=== PATIENT | female | born 1975 | race Caucasian/White ===

== ENCOUNTER 2016-11-03 11:21 | Emergency (ER) | payer SELFPAY ==
[~2016-11-03] VITALS: Ht 162.6 cm; Wt 70.0 kg
[2016-11-03 11:22] VITALS: BP 137/72; PULSE 81; RESP 12; TEMP 98.3; O2SAT 99
[2016-11-03] MEDS ORDERED: IBUP800T23 PO ×2 (11:45→12:03)
[2016-11-03] MEDS ORDERED: DEXAMETHASONE SOD PHOS 20 MG/5 ML VIAL IM ONE (11:45)
[2016-11-03] MEDS ORDERED: ROBA500T PO ×2 (11:46→12:03)
--- NOTE | 2016-11-03 11:46 | PD ---
HPI Chief Complaint: Pain: Acute or Chronic Time Seen by Provider: 11:43 Travel History International Travel<30 days: No Contact w/Intl Traveler<30days: No Traveled to known affect area: No History of Present Illness HPI 41 year-old female presents to the emergency department for evaluation. Patient presents with MRI results. These were ordered by her chiropractor but her chiropractor is unable to prescribe her any pain control. Patient does not have a primary care provider locally. She would like injections in her neck. Patient states that she has had neck pain for an extended amount of time however Wednesday, 3 days ago, she woke up with right sided neck and arm pain. She started going to the chiropractor which did not help. Imaging studies were ordered, completed, and patient has nobody to follow-up with. She reports no new injury. No recent illness, fever, or chills. She has no history of IV drug use. She has no other symptoms to report. PFSH Past Medical History Medical History: Denies Significant Hx ?: Not Social History Alcohol Use: No Tobacco Use: No Substance Use: No Allergies-Medications (Allergen,Severity, Reaction): Coded Allergies: No Known Allergies (Unverified , 11/03/16) Reported Meds & Prescriptions Reported Meds & Active Scripts Active Robaxin (Methocarbamol) 500 Mg Tab 500 Mg PO QID PRN Ibuprofen 800 Mg Tab 800 Mg PO Q8H PRN Review of Systems Except as stated in HPI: all other systems reviewed are Neg Physical Exam Narrative GENERAL: Well-nourished female patient, ambulatory no acute distress SKIN: Warm and dry. HEAD: Atraumatic. Normocephalic. EYES: Pupils equal and round. No scleral icterus. No injection or drainage. ENT: No nasal bleeding or discharge. Mucous membranes pink and moist. NECK: Trachea midline. No JVD. No cervical spine tenderness. There is tenderness also to palpation along the right trapezius musculature. CARDIOVASCULAR: Regular rate and rhythm. No murmur appreciated. RESPIRATORY: No accessory muscle use. Clear to auscultation. Breath sounds equal bilaterally. GASTROINTESTINAL: Abdomen soft, non-tender, nondistended. Hepatic and splenic margins not palpable. MUSCULOSKELETAL: No obvious deformities. No clubbing. No cyanosis. No edema. 5 plus strength equal bilateral extremities. Montes De Oca sign is negative. Sensation intact distal extremity. NEUROLOGICAL: Awake and alert. No obvious cranial nerve deficits. Motor grossly within normal limits. Normal speech. PSYCHIATRIC: Appropriate mood and affect; insight and judgment normal. Data Data Last Documented VS Vital Signs Date Time Temp Pulse Resp B/P Pulse Ox O2 Delivery O2 Flow Rate FiO2 11/03/16 11:22 98.3 81 12 137/72 99 Room Air Orders Dexamethasone Inj (Decadron Inj) (11/03/16 11:45) MDM Medical Decision Making Medical Screen Exam Complete: Yes Emergency Medical Condition: Yes Medical Record Reviewed: Yes Differential Diagnosis Cervical radiculopathy versus neuralgia versus shoulder sprain versus osteoarthritis versus discogenic pain Narrative Course 41-year-old female presents to the the emergency department. Patient has her MRI and would like injections into her neck however I told her we do not do this here. I explained to her that there is a need for her to follow-up with the neurosurgeon for further evaluation and recommendation of treatment. Pain management is also an option. She is provided pain control here. She agrees to return immediately with any worsening symptoms. Diagnosis Primary Impression: Cervical radicular pain Referrals: Marvin Villarreal Neurosurgeon Pain Management Primary Care Physician Patient Instructions: Cervical Radiculopathy (ED), General Instructions Departure Forms: Tests/Procedures, Work Release Enter return to work date: Nov 09, 2016 Additional Instructions: It is important that you follow up with a primary care provider Seek neurosurgery evaluation Return immediately to the emergency department with any acute worsening symptoms Med/Other Pt SpecificInfo: Prescription(s) given Scripts Methocarbamol (Robaxin)500 Mg [id number] Mg PO QID PRN (MUSCLE SPASM) #21 TAB Ref 0 Prov:Mary Grace Philippe 11/03/16 Ibuprofen 800 Mg [id number] Mg PO Q8H PRN (Pain/Inflammation) #30 TAB Ref 0 Prov:Mary Grace Philippe 11/03/16 Disposition: 01 DISCHARGE HOME Condition: Stable Mary Grace Philippe Nov 03, 2016 11:46
== END 2016-11-03 12:17 | disposition home or self-care (01) ==
LOC: NETRI 11:21
DX: M54.12 Radiculopathy, cervical region (principal)
CPT/HCPCS: 96372; 99283; J1100

== ENCOUNTER → 2017-03-22 | Outpatient (CLI) | payer OTHER ==
[~2017-03-22] MED LIST: CYCL1TAB29 PO; HYDR-3583 PO; IBUP800T23 PO; ROBA500T PO
== END ==
LOC: CPRE 11:52
PROVIDERS: ATTEND Neurological Surgery
DX: Z01.812 Encounter for preprocedural laboratory examination (principal); M50.10 Cervical disc disorder with radiculopathy, unspecified cervical region; M48.02 Spinal stenosis, cervical region; M50.30 Other cervical disc degeneration, unspecified cervical region

== ENCOUNTER 2017-03-25 06:07 | Observation (INO) | payer OTHER ==
--- NOTE | 2017-03-24 16:34 | MH ---
cc: LORI VILLAREAL DATE OF ADMISSION 03/25/2017 ADMISSION DIAGNOSIS Cervical disk disorder with radiculopathy. HISTORY OF PRESENT ILLNESS This is a 41-year-old female who presented to us for an evaluation of neck pain radiating into the right upper extremity. She woke up on October 20 with severe neck pain radiating into the right shoulder and into the posterior upper extremity. She states during the day the right upper extremity became numb in the posterior aspect and especially in the right fourth and fifth fingers. She went to a chiropractor about three to four times not for adjustments but massage therapeutic treatments. She states he obtained an MRI and stated she needed to see a spine surgery. She states she used anti-inflammatory medication. The pain improved but she continues to have numbness and weakness in the right hand. She states she has noticed weakness with driving and gripping things. She denies any left upper extremity symptoms. She denies any unsteadiness or incontinence. She has not had any formal physical therapy but has had exercises with chiropractic treatment. She has been to pain management and had an injection which did not help. She has also had an EMG nerve conduction study which is consistent with a right CA radiculopathy with superimposed chronic right ulnar neuropathy at the elbow. PAST MEDICAL HISTORY Significant for breast augmentation in 2008. MEDICATIONS She currently is not taking any medications. ALLERGIES She has no known drug allergies. FAMILY HISTORY Her father is at [id number], had bile duct carcinoma. Her mother is alive at [id number] and well. She has a brother who is alive at 37 and is well. She has another brother who is 32 and well. SOCIAL HISTORY She works as a realtor. She is single. She does not have children. She lives alone. She does not smoke. REVIEW OF SYSTEMS CONSTITUTIONAL: She denies any fever or chills. EARS/NOSE/THROAT: No pharyngitis, exudates or bloody drainage from her nose. CARDIOVASCULAR: She denies any chest pain or palpitations. RESPIRATORY: No cough or shortness of breath. GENITOURINARY: No dysuria, hematuria. MUSCULOSKELETAL: Positive for neck pain and right upper extremity pain. SKIN: No rashes or pruritus. NEUROLOGIC: No difficulty with speech or memory. GASTROINTESTINAL: No nausea, vomiting, abdominal pain. PSYCHIATRIC: No anxiety, depression symptoms. ENDOCRINE: No polyuria, polydipsia. HEMATOLOGY: No bruising or bleeding tendencies. PHYSICAL EXAMINATION HEAD: Normocephalic, atraumatic. NECK: Supple. No carotid bruits heard on auscultation. LUNGS: Clear to auscultation bilaterally. HEART: Regular rate and rhythm, normal S1-S2. ABDOMEN: Soft, nontender. Positive bowel sounds. SKIN: No cyanosis or erythema. MUSCULOSKELETAL: She has 5/5 strength in the upper extremities except for weakness in her right triceps which is about 4+/5 and some hand intrinsic weakness bilaterally. There is no ataxia. NEUROLOGIC: She is awake, alert, oriented. Cranial nerves II-XII are grossly intact. Her speech is fluent. Comprehension is good. Sensation is decreased in the right fourth and fifth fingers, otherwise, intact in the upper extremities. She has 2+ reflexes in the upper extremity. Has no Montes De Oca's reflex. No clonus. DATA Reviewed MRI of the cervical spine from October 30, 2016 which reveals an acute moderate size disk herniation at the right C7-T1 level with significant foraminal stenosis. She also has chronic disk protrusions involving the C3-C4, C4-C5, C5-C6, C6-C7 levels with overall mild stenosis and loss of cervical lordosis. EMG nerve conduction study from February 16, 2017 were also reviewed and are consistent with a right C8 radiculopathy with superimposed chronic right ulnar neuropathy at the elbow. IMPRESSION A 41-year-old female with a right C8 radiculopathy. Her symptoms of neck pain have improved, although, she continues to have paresthesias. She has a disk herniation at the right C7-T1 level with severe foraminal stenosis and C8 nerve root compression. There are a lesser degree of multilevel degenerative disk protrusions also noted from C3-C7. PLAN We have discussed treatment options with the patient and she is requesting that we proceed with surgical intervention. She has failed conservative treatment measures including physical therapy and interventional pain management. We have discussed the procedure of an anterior C7-T1 diskectomy with fusion and the procedure was explained using spine models in the office. We have discussed the risks along with surgery include but not limited to bleeding, infection, muscle weakness, voice hoarseness, difficulty swallowing, heart attack, stroke, blood clots, non-fusion, scar tissue formation among others. We also discussed that given the location of the lower cervical upper thoracic junction can sometimes be difficult and the sternum may require sternotomy with cardiothoracic surgery involvement. The patient understands this and she is wishing to proceed and she was therefore scheduled accordingly. Dictated by: Lopez Cabezas PA-C MD TIANNA Burleson/MIGDALIA /3:49 PM /4:04 PM
[~2017-03-25] VITALS: Ht 165.1 cm; Wt 68.1 kg
[2017-03-25] MEDS ORDERED: SODIUM CHLORID 0.9% 500 ML IV PRN (06:30)
[2017-03-25] MEDS ORDERED: CHLORHEXIDINE GLUCONATE 2 % 1 PACK (2 CLOTHS) TOPICAL PRN (06:30)
[2017-03-25] MEDS ORDERED: METOPROLOL TARTRATE 25 MG TAB PO PRN (06:30)
[2017-03-25] MEDS ORDERED: SODIUM CHLOR 0.9% 1000 ML INJ 1,000 ML IV SCH (06:30)
[2017-03-25] MEDS ORDERED: VANCOMYCIN HCL 1000 MG ON-CALL/NS 250 ML IV SCH ×2 (06:30)
[2017-03-25] MEDS ORDERED: INSULIN HUMAN REGULAR 1,000 UNITS/10 ML VIAL SQ PRN (06:30)
[2017-03-25] MEDS ORDERED: POVIDONE IODINE 5% (ANTISEPSIS KIT) 4 APPLICATIONS EACH NARE PRN (06:30)
[2017-03-25] MEDS ORDERED: LACTATED RINGER'S 1000 ML IV PRN (06:30)
[2017-03-25 06:33] VITALS: BP 109/73; PULSE 74; RESP 16; TEMP 98; O2SAT 98
[2017-03-25] MEDS ORDERED: KETAMINE HCL 500 MG/5 ML VIAL ONE (07:06)
[2017-03-25] MEDS ORDERED: ACETAMINOPHEN 1000 MG/100 ML VIAL IV ONE (07:06)
[2017-03-25] MEDS ORDERED: THROMBIN (TOPICAL) 5,000 UNIT VIAL ONE (07:49)
[2017-03-25] MEDS ORDERED: BUPIVACAINE/EPINEPHRINE 0.5% PF 30 ML VIAL ONE (07:49)
[2017-03-25] MEDS ORDERED: GELFOAM SIZE 100 ONE (07:49)
[2017-03-25] MEDS: VANCOMYCIN HCL 1000 MG VIAL ONE ×2 (08:06→10:25)
[2017-03-25] MEDS ORDERED: MIDAZOLAM HCL 2 MG/2 ML VIAL ONE (08:20)
[2017-03-25] MEDS ORDERED: fentaNYL CITRATE 250 MCG/5 ML AMP ONE ×2 (08:21→11:31)
[2017-03-25] MEDS ORDERED: FAMOTIDINE 20 MG/2 ML VIAL ONE (08:21)
[2017-03-25] MEDS ORDERED: DEXAMETHASONE SOD PHOS 4 MG/ML VIAL ONE (08:21)
[2017-03-25] MEDS ORDERED: APREPITANT 40 MG CAP ONE (08:21)
[2017-03-25] MEDS ORDERED: NS + KCL 20 MEQ INJ 1,000 ML IV SCH (11:19)
--- NOTE | 2017-03-25 11:24 | PD.OP ---
MD Main German MD Operative Report Date of Surgery: Mar 25, 2017 Preoperative Diagnosis: Neck pain with intractable right C8 radiculopathy; C7-T1 disc degeneration with herniation and associated spinal and right foraminal stenosis Postoperative Diagnosis: Same Procedure: Anterior cervical C7-T1 microdiscectomy with interbody fusion; anterior C7-T1 plate placed; C7-T1 interbody cage placement; microsurgical technique Anesthesia: Gen. endotracheal by Martha Gil Surgeon: Mati Heart M.D. [employer] Repairer(s): Magda Reilly Operation and Findings: Following administration of general endotracheal anesthesia, the patient received a gram of vancomycin intravenously. Sequential compression devices were placed in supine position on a Gilberto table and all pressure points adequately padded. The head secured in a donut and anterior cervical region then shaved and prepped with Chloraprep and sterilely draped with Ioban along with the usual sterile draping. A transverse skin incision on the left side of the neck was then made after infiltrating the skin with 0.5% Marcaine with epinephrine solution extending down through the platysma. At the anterior border of the sternocleidomastoid further dissection was undertaken developing a plane between the carotid sheath laterally and the trachea esophagus medially. The prevertebral fascia was exposed and dissected out. The medial attachments of the longus colli muscles were detached and a self-retaining retractor used for exposure. The C7-T1 disc space was localized with a marking the disc space and using lateral fluoroscopy. [place] distraction screws 14 mm length were placed one in the C7 and one in the T1 body for interbody distraction and exposure. There was significant disc degeneration with disc height collapse noted and annulus incised with a 15 blade and further dissection undertaken using microtechnique with microscope magnification. Diskectomy was undertaken with pituitaries and the endplates were also decorticated with curettes and drill bit. And more posteriorly there was disk osteophyte complex compressing the thecal sac along with a significant uncovertebral joint hypertrophy with foraminal stenosis from a large right herniated disc fragment which was decompressed along with removal of the posterior longitudinal ligament. The foramen were decompressed bilaterally using a Kerrison and palpation with a nerve hook, the exiting nerve roots were felt to be free. The area was then copiously irrigated. I then placed a Peek cage packed with local autograft bone at the C7-T1 interspace under fluoroscopy guidance. [place] distraction pins were removed and the holes plugged with Gelfoam for hemostasis. In order to facilitate the fusion and provide stabilization, a Precision spine cervical plate was then placed with two 14 mm variable angle screws in the C7 body and two 14 mm fixed angle screws in the T1 body. The plate screw locking mechanism was then engaged. AP and lateral fluoroscopy confirmed good placement of the construct and the retractor was then removed. Muscular bleeding points were cauterized with bipolar cautery and Gelfoam was then also used for hemostasis which was removed. The platysma was then approximated using 3-0 Vicryl interrupted stitches and 3-0 Vicryl subcuticular stitch also placed in an interrupted fashion, and final skin closure was with Mastisol and Steri-Strips. Sterile dressing was then applied. The patient was then extubated and taken to the recovery room. There are no intraoperative complications and all sponge and needle counts were correct at the end of procedure. Estimated blood loss was about 100 cc. The patient did undergo intraoperative neurologic monitoring which remained stable throughout the surgery. Mati Heart MD Mar 25, 2017 11:24
[2017-03-25] MEDS ORDERED: ACETAMINOPHEN/HYDROcodone 325 MG/10 MG TAB PO PRN (11:30)
[2017-03-25] MEDS ORDERED: MAGNESIUM HYDROXIDE SUSP 30 ML CUP PO PRN (11:30)
[2017-03-25] MEDS ORDERED: SODIUM CHLORIDE 0.9% FLUSH 10 ML FLUSH IV FLUSH PRN (11:30)
[2017-03-25] MEDS ORDERED: RESP: ALBUTEROL 2.5 MG/3 ML NEB (PRN) NEB (11:30)
[2017-03-25] MEDS ORDERED: cloNIDine HCL 0.1 MG TAB PO PRN (11:30)
[2017-03-25] MEDS ORDERED: ALUMINUM/MAGNESIUM/SIMETH 30 ML CUP PO PRN (11:30)
[2017-03-25] MEDS ORDERED: ACETAMINOPHEN 325 MG TAB PO PRN (11:30)
[2017-03-25] MEDS ORDERED: ONDANSETRON HCL 4 MG/2 ML VIAL IV PRN (11:30)
[2017-03-25] MEDS ORDERED: MORPHINE SULFATE 4 MG/ML INJ IV PRN (11:30)
[2017-03-25] MEDS ORDERED: MENTHOL LOZENGE BUCCAL PRN (11:30)
[2017-03-25] MEDS ORDERED: ZOLPIDEM TARTRATE 5 MG TAB PO PRN (11:30)
[2017-03-25] MEDS ORDERED: LACTATED RINGER'S 1000 ML INJ 1,000 ML IV ONE (12:00)
[2017-03-25] MEDS ORDERED: NEOSTIGMINE 3 MG/3 ML SYR IV ONE (12:00)
[2017-03-25] MEDS ORDERED: ONDANSETRON HCL 4 MG/2 ML VIAL IV PUSH ONE (12:00)
[2017-03-25] MEDS ORDERED: PROPOFOL 200 MG/20 ML AMP IV ONE (12:00)
[2017-03-25] MEDS ORDERED: NORMOSOL R INJ 1,000 ML IV ONE (12:00)
[2017-03-25] MEDS ORDERED: DO NOT ADM ANY ANTICOAGULANT DRUGS PRN (12:30)
[2017-03-25 13:38] VITALS: BP 105/67; PULSE 63; RESP 18; TEMP 96.8; O2SAT 100
[2017-03-25] MEDS: DEXAMETHASONE SOD PHOS 4 MG/ML VIAL IV SCH (15:00)
[2017-03-25] MEDS: ACETAMINOPHEN/HYDROcodone 325 MG/10 MG TAB PO PRN ×2 (15:00→21:44)
--- NOTE | 2017-03-25 15:16 | RADRPT ---
EXAM DATE/TIME: 03/25/2017 09:30 [facility] COMPARISON: No previous studies available for comparison. INDICATIONS : Post-op C7-T1 anterior cervical fusion. MEDICAL HISTORY : None. SURGICAL HISTORY : Breast augmentation. ENCOUNTER: Initial ACUITY: 1 day PAIN SCORE: Non-responsive. LOCATION: neck FINDINGS: For magnified C-arm spot views are centered over the cervical spine. An anterior fusion plate is seen with anchoring screws involving C7-T1. The alignment observed. Disc space narrowing throughout the v isualized portions of the cervical spine with sparing of C2-C3. Anterior osteophytes noted. CONCLUSION: C7-T1 anterior fusion. Carlos Eduardo Armendariz Jr., MD on March 25, 2017 at 15:13 Board Certified Radiologist. This report was verified electronically.
[2017-03-25 16:00] VITALS: BP 112/70; PULSE 62; RESP 17; TEMP 97.2; O2SAT 100
--- NOTE | 2017-03-25 17:03 | RADRPT ---
EXAM DATE/TIME: 03/25/2017 09:30 [facility] COMPARISON: No previous studies available for comparison. INDICATIONS : C7-T1 anterior cervical fusion. Level localization. MEDICAL HISTORY : None. SURGICAL HISTORY : Breast augmentation. ENCOUNTER: Initial ACUITY: 1 day PAIN SCORE: Non-responsive. LOCATION: neck FINDINGS: 2 lateral images of the cervical region were performed digitally using a C-arm. An anterior localiza tion probe is present. CONCLUSION: Intraoperative images. Carlos Eduardo Saenz MD on March 25, 2017 at 17:01 Board Certified Radiologist. This report was verified electronically.
[2017-03-25 20:00] VITALS: BP 105/60; PULSE 62; RESP 16; TEMP 96.2; O2SAT 100
[2017-03-25] MEDS: DOCUSATE SODIUM 100 MG CAP PO SCH (20:22)
[2017-03-25] MEDS: SODIUM CHLORIDE 0.9% FLUSH 10 ML FLUSH IV FLUSH SCH (20:23)
[2017-03-25 21:03] VITALS: O2SAT 98
[2017-03-26 00:05] VITALS: BP 96/60; PULSE 62; RESP 16; TEMP 96.7; O2SAT 97
[2017-03-26] MEDS: CYCLOBENZAPRINE HCL 10 MG TAB PO PRN ×2 (00:26→09:32)
[2017-03-26] MEDS: DEXAMETHASONE SOD PHOS 4 MG/ML VIAL IV SCH (03:00)
[2017-03-26 04:35] VITALS: BP 97/54; PULSE 76; RESP 16; TEMP 96.4; O2SAT 97
[2017-03-26 06:06] VITALS: BP 98/56; PULSE 62
[2017-03-26] MEDS: ACETAMINOPHEN/HYDROcodone 325 MG/10 MG TAB PO PRN (06:09)
[2017-03-26 08:53] VITALS: BP 100/63; PULSE 63; RESP 16; TEMP 97.7; O2SAT 100
[2017-03-26] MEDS ORDERED: PANTOPRAZOLE SOD 40 MG DELAYED RELEASE TAB PO SCH (09:00)
[2017-03-26] MEDS: SODIUM CHLORIDE 0.9% FLUSH 10 ML FLUSH IV FLUSH SCH (09:00)
--- NOTE | 2017-03-26 09:08 | HHI.NSPN ---
(Lopez Cabezas) History Chief Complaint: Mild neck discomfort. (Lopez Cabezas) Interval History 03/26/17: Pt s/p anterior cervical C7-T1 microdiscectomy with interbody fusion; anterior C7-T1 plate placed; C7-T1 interbody cage placement on 03/25/17. She states she is feeling better with less discomfort in her right elbow and arm. Less numbness in right hand and forearm. She is ambulating and voiding well. Had some episodes of tightness in LUE last night resolved with muscle relaxant. (Lopez Cabezas) Review of Systems General: Negative for: fever, chills, insomnia Respiratory: Negative for: shortness of breath, cough, sputum Cardiovascular: Negative for: chest pain Gastrointestinal: Negative for: nausea, vomitting, diarrhea, constipation ( Lopez Cabezas) Exam Results Vital Signs Date Time Temp Pulse Resp B/P Pulse Ox O2 Delivery O2 Flow Rate FiO2 03/26/17 08:53 97.7 63 16 100/63 100 03/25/17 13:00 Room Air Intake and Output 03/25/17 03/25/17 03/26/17 08:00 16:00 00:00 Intake Total 1100 ml 1059 ml Balance 1100 ml 1059 ml (Lopez Cabezas) Physical Examination Resp: CTA bilaterally Heart: NSR no murmurs Abd: Soft positive bs Skin: No cyanosis or erythema. RN changed bandage this morning. clean and dry. Muscle: Moves all 4 extremities well. Ambulating independently to bathroom. Neuro: Pt awake and alert. Follows commands well. Speech clear and appropriate. (Lopez Cabezas) Lab, Micro, Other Results 03/25/17 03/25/17 03/26/17 15:00 23:00 07:00 Intake Total 1100 ml 1059 ml 390 ml Balance 1100 ml 1059 ml 390 ml Intake Oral 920 ml 240 ml IV Total 139 ml 150 ml Other 1100 ml # Voids 3 2 # Bowel Movements 0 0 (Lopez Cabezas) Medical Decision Making Impression and Plan A: 41 y/o FM s/p C7/T1 anterior cervical fusion with cervical plate placement. P: Discharge pt home Discussed restrictions Follow up as instructed. (Lopez Cabezas) Attending Statement The exam, history, and the medical decision-making described in the above note were completed with the assistance of the mid-level provider. I reviewed and agree with the findings presented. I attest that I had a [id number] encounter with the patient on the same day, and personally performed and documented my assessment and findings in the medical record. (Mati Heart MD) Lopez Cabezas Mar 26, 2017 09:08 Mati Heart MD Mar 26, 2017 11:01
[2017-03-26] MEDS ORDERED: HYDR-3583 PO (09:12)
[2017-03-26] MEDS ORDERED: CYCL1TAB29 PO (09:12)
[2017-03-26] MEDS: DOCUSATE SODIUM 100 MG CAP PO SCH (09:31)
== END 2017-03-26 12:52 | disposition home or self-care (01) ==
LOC: HSDC 06:07 → HSDI 11:22 → N06B 13:37
PROVIDERS: ADMIT Neurological Surgery; ATTEND Neurological Surgery
DX: M50.13 Cervical disc disorder with radiculopathy, cervicothoracic region (principal); M48.03 Spinal stenosis, cervicothoracic region; M25.78 Osteophyte, vertebrae
CPT/HCPCS: 20936; 22551; 22853; 72020; 72040; 76000; 94150; 96365; 96376; C1713; G0378; J0131; J0690; J2250; J2405; J2710; J3010; J3370; J3480; J7050; J7120; J8501; J1100